=== PATIENT | male | born 1955 | race American Indian/Alaskan Native ===

== ENCOUNTER 2017-06-02 12:04 | Emergency (ER) | payer SELFPAY ==
[2017-06-02] MEDS ORDERED: HYDROGEN PEROXIDE TP ONE (19:42)
[2017-06-02] MEDS ORDERED: CATAPRES PO ONE (19:44)
--- NOTE | 2017-06-02 19:46 | Emergency Department Report ---
ED ENT HPI - General Chief complaint: Earache Stated complaint: L EAR PAIN Time Seen by Provider: 06/02/17 18:43 Source: patient Mode of arrival: Ambulatory Limitations: No Limitations - History of Present Illness Initial comments: This is a 62-year-old male nontoxic, well nourished in appearance, no acute signs of distress presents to the ED complaining of left ear pain 3 days. Patient stated he was cleaning his ear with Q-tip and stated he thinks he impacted his ear with ear wax. Patient states he has increased hearing but denies having hearing loss. Patient denies any trauma to the region. Denies ear discharge, chest pain, shortness of breath, headache, blurry vision, numbness, tingling, stiff neck, headache, fever or chills. Patient denies any allergies. Past medical history includes hypertension and diabetes. Patient stated he needs a refill for his glipizide 5 mg. MD complaint: ear pain -: Gradual, days(s) (3) Location: L ear Severity: mild Quality: other (hearing decreased) Consistency: constant Improves with: none Worsens with: none Associated Symptoms: denies: fever, cough, gum swelling, toothache, pain with swallowing, sore throat, tinnitus, hearing loss, discharge from ear, rhinorrhea - Related Data Previous Rx's Medication Instructions Recorded Last Taken Type Levofloxacin [Levaquin TAB] 500 mg PO QDAY #7 tablet 04/08/15 Unknown Rx glipiZIDE [Glucotrol] 5 mg PO BID #60 tablet 05/13/16 Unknown Rx Amoxicillin 500 mg PO BID #20 capsule 06/02/17 Unknown Rx amLODIPine [Norvasc] 5 mg PO DAILY #30 tab 06/02/17 Unknown Rx glipiZIDE [Glucotrol Xl] 5 mg PO BID #60 tab.er.24 06/02/17 Unknown Rx Allergies Allergy/AdvReac Type Severity Reaction Status Date / Time No Known Allergies Allergy Unverified 05/13/16 15:05 ED Dental HPI - General Chief complaint: Earache Stated complaint: L EAR PAIN Time Seen by Provider: 06/02/17 18:43 Source: patient Mode of arrival: Ambulatory Limitations: No Limitations - Related Data Previous Rx's Medication Instructions Recorded Last Taken Type Levofloxacin [Levaquin TAB] 500 mg PO QDAY #7 tablet 04/08/15 Unknown Rx glipiZIDE [Glucotrol] 5 mg PO BID #60 tablet 05/13/16 Unknown Rx Amoxicillin 500 mg PO BID #20 capsule 06/02/17 Unknown Rx amLODIPine [Norvasc] 5 mg PO DAILY #30 tab 06/02/17 Unknown Rx glipiZIDE [Glucotrol Xl] 5 mg PO BID #60 tab.er.24 06/02/17 Unknown Rx Allergies Allergy/AdvReac Type Severity Reaction Status Date / Time No Known Allergies Allergy Unverified 05/13/16 15:05 ED Review of Systems ROS: Stated complaint: L EAR PAIN Other details as noted in HPI Constitutional: denies: chills, fever Eyes: denies: eye pain, eye discharge, vision change ENT: denies: ear pain, throat pain Respiratory: denies: cough, shortness of breath, wheezing Cardiovascular: denies: chest pain, palpitations Endocrine: no symptoms reported Gastrointestinal: denies: abdominal pain, nausea, diarrhea Genitourinary: denies: urgency, dysuria Musculoskeletal: denies: back pain, joint swelling, arthralgia Skin: denies: rash, lesions Neurological: denies: headache, weakness, paresthesias Psychiatric: denies: anxiety, depression Hematological/Lymphatic: denies: easy bleeding, easy bruising ED Past Medical Hx - Past Medical History Previous Medical History?: Yes Hx Hypertension: Yes Hx Diabetes: Yes Hx Seizures: Yes - Surgical History Past Surgical History?: Yes Additional Surgical History: RIGHT THUMB. RIGHT ARM SURGERY - Social History Smoking Status: Former Smoker Substance Use Type: Alcohol - Medications Home Medications: Home Medications Medication Instructions Recorded Confirmed Last Taken Type Levofloxacin [Levaquin TAB] 500 mg PO QDAY #7 tablet 04/08/15 01/08/16 Unknown Rx glipiZIDE [Glucotrol] 5 mg PO BID #60 tablet 05/13/16 Unknown Rx Amoxicillin 500 mg PO BID #20 capsule 06/02/17 Unknown Rx amLODIPine [Norvasc] 5 mg PO DAILY #30 tab 06/02/17 Unknown Rx glipiZIDE [Glucotrol Xl] 5 mg PO BID #60 tab.er.24 06/02/17 Unknown Rx ED Physical Exam - General Limitations: No Limitations General appearance: alert, in no apparent distress - Head Head exam: Present: atraumatic, normocephalic, normal inspection - Eye Eye exam: Present: normal appearance, PERRL, EOMI. Absent: scleral icterus, conjunctival injection, nystagmus, periorbital swelling, periorbital tenderness Pupils: Present: normal accommodation - ENT ENT exam: Present: normal exam, normal orophraynx, mucous membranes moist, normal external ear exam - Expanded ENT Exam Expanded Ear exam: Present: normal external inspection TM/Canal exam: Erythema: Left TM, Bulging: Left TM, Cerumen Impaction: Left TM Mouth exam: Present: normal external inspection, tongue normal. Absent: drooling, trismus, muffled voice, tongue elevation, laceration Teeth exam: Present: normal inspection Throat exam: Positive: normal inspection. Negative: tonsillar erythema, tonsillomegaly, tonsillar exudate, R peritonsillar mass, L peritonsillar mass - Neck Neck exam: Present: normal inspection, full ROM. Absent: tenderness, meningismus, lymphadenopathy, thyromegaly - Respiratory Respiratory exam: Present: normal lung sounds bilaterally. Absent: respiratory distress, wheezes, rales, rhonchi, stridor, chest wall tenderness, accessory muscle use, decreased breath sounds, prolonged expiratory - Cardiovascular Cardiovascular Exam: Present: regular rate, normal rhythm, normal heart sounds. Absent: bradycardia, tachycardia, irregular rhythm, systolic murmur, diastolic murmur, rubs, gallop - GI/Abdominal GI/Abdominal exam: Present: soft, normal bowel sounds - Rectal Rectal exam: Present: deferred - Extremities Exam Extremities exam: Present: normal inspection, full ROM, normal capillary refill. Absent: tenderness, pedal edema, joint swelling, calf tenderness - Back Exam Back exam: Present: normal inspection, full ROM. Absent: tenderness, CVA tenderness (R), CVA tenderness (L), muscle spasm, paraspinal tenderness, vertebral tenderness, rash noted - Neurological Exam Neurological exam: Present: alert, oriented X3, CN II-XII intact, normal gait, reflexes normal - Psychiatric Psychiatric exam: Present: normal affect, normal mood - Skin Skin exam: Present: warm, dry, intact, normal color. Absent: rash ED Course Vital Signs 06/02/17 14:09 Temperature 98.3 F Pulse Rate 74 Respiratory 16 Rate Blood Pressure 177/93 O2 Sat by Pulse 99 Oximetry - Reevaluation(s) Reevaluation #1: 06/02/17 19:48 Patient is speaking in full sentences with no signs of distress noted. Reevaluation #2: 06/02/17 19:50 Hydrogen peroxide used mixed with warm water 50-50 to clean out the cerumen impaction. I used wax curet to remove the cercumen impaction. Patient stated hearing has returned to normal. Reevaluation #3: 06/02/17 19:53 Patient received Catapres 0.2 mg for his high blood pressure. Well wait until blood pressure is within normal limits before discharge. Critical care attestation.: If time is entered above; I have spent that time in minutes in the direct care of this critically ill patient, excluding procedure time. ED Disposition Clinical Impression: Cerumen impaction Qualifiers: Laterality: left Qualified Code(s): H61.22 - Impacted cerumen, left ear Otitis media Qualifiers: Otitis media type: unspecified Chronicity: unspecified Laterality: left Qualified Code(s): H66.92 - Otitis media, unspecified, left ear Hypertension Qualifiers: Hypertension type: unspecified Qualified Code(s): I10 - Essential (primary) hypertension Disposition: DC- TO HOME OR SELFCARE Is pt being admited?: No Does the pt Need Aspirin: No Condition: Stable Instructions: Cerumen Impaction (ED), Otitis Media (ED), Amoxicillin (By mouth) , Hypertension (ED), Low Sodium Diet (ED) Additional Instructions: Keep a daily diary of your blood pressure and presented to year primary care doctor. Follow-up with your primary care doctor in 3-5 days or if symptoms worsen or continue returns to emergency room as soon as possible. Prescriptions: amLODIPine [Norvasc] 5 mg PO DAILY #30 tab Amoxicillin 500 mg PO BID #20 capsule glipiZIDE [Glucotrol Xl] 5 mg PO BID #60 tab.er.24 Referrals: PRIMARY CAREMD [Primary Care Provider] - 3-5 Days GUERA HINOJOSA MD [Staff Physician] - 3-5 Days [facility] [Outside] - 3-5 Days [facility] [Outside] - 3-5 Days Forms: Work/School Release Form(ED)
[2017-06-02 21:13] VITALS: BP 122/82
== END 2017-06-02 21:23 | disposition home or self-care (01) ==
LOC: ED 12:04
DX: H61.22 Impacted cerumen, left ear (principal); H66.92 Otitis media, unspecified, left ear; I10 Essential (primary) hypertension; E11.9 Type 2 diabetes mellitus without complications; Z87.891 Personal history of nicotine dependence
CPT/HCPCS: 99282

== ENCOUNTER 2018-09-19 14:45 | Emergency (ER) | payer OTHER ==
[2018-09-19 15:19] LABS: Basophils % (Auto) 0.5 % (0.0-1.8); Eosinophils # (Auto) 0.1 K/mm3 (0.0-0.4); Eosinophils % (Auto) 1.3 % (0.0-4.3); Hematocrit 43.6 % (35.5-45.6); Hemoglobin 14.6 gm/dl (11.8-15.2); Lymphocytes # (Auto) 2.3 K/mm3 (1.2-5.4); Lymphocytes % (Auto) 32.6 % (13.4-35.0); Mean Corpuscular HGB Conc 34 % (32-34); Mean Corpuscular Volume 86 fl (84-94); Monocytes # (Auto) 0.5 K/mm3 (0.0-0.8); Monocytes % (Auto) 7.3 % (0.0-7.3); Platelet Count 296 K/mm3 (140-440); Red Blood Count 5.08 M/mm3 (3.65-5.03); Red Cell Distribution Width 13.1 % (13.2-15.2)
[2018-09-19 15:29] LABS: BUN/Creatinine Ratio 10; Blood Urea Nitrogen 12 mg/dL (9-20); Calcium 9.4 mg/dL (8.4-10.2); Hemolysis Index 24
[2018-09-19 16:03] LABS: Bilirubin,Urine NEG (Negative); Blood,Urine NEG (Negative); Color,Urine Straw (Yellow); Mucus,Urine FEW /HPF; Protein,Urine <15 mg/dL mg/dL (Negative); Urobilinogen,Urine < 2.0 mg/dL (<2.0); WBC,Urine < 1.0 /HPF (0.0-6.0)
[2018-09-19] MEDS ORDERED: CATAPRES PO ONE (18:03)
--- NOTE | 2018-09-19 18:08 | Emergency Department Report ---
HPI - General Chief Complaint: High BP Time Seen by Provider: 09/19/18 17:25 - HPI HPI: This is a 63-year-old male with a history of blood pressure and diabetes uncontrolled with medication who presents to ED stating that he is out of his blood pressure medication and diabetes medication because he does not have a primary care doctor due to him not have insurance. Patient states he just got his insurance and needs primary care doctor to keep his old on an control. Patient states he took his blood sugar this morning and it was high in the 300s so he came to be evaluated. Patient also states he has a history of prostate disorder which he is taking medication for. Patient denies fever/ nausea vomiting/chest pain/shortness of breath. ED Past Medical Hx - Past Medical History Hx Hypertension: Yes Hx Diabetes: Yes Hx Seizures: Yes - Surgical History Additional Surgical History: RIGHT THUMB. RIGHT ARM SURGERY - Social History Smoking Status: Never Smoker Substance Use Type: Alcohol - Medications Home Medications: Home Medications Medication Instructions Recorded Confirmed Last Taken Type levoFLOXacin [Levaquin TAB] 500 mg PO QDAY #7 tablet 04/08/15 01/08/16 Unknown Rx glipiZIDE [Glucotrol] 5 mg PO BID #60 tablet 05/13/16 Unknown Rx Amoxicillin 500 mg PO BID #20 capsule 06/02/17 Unknown Rx amLODIPine [Norvasc] 5 mg PO DAILY #30 tab 06/02/17 Unknown Rx glipiZIDE [Glucotrol Xl] 5 mg PO BID #60 tab.er.24 06/02/17 Unknown Rx Metformin HCl [Glucophage] 500 mg PO BID #30 tablet 09/19/18 Unknown Rx amLODIPine [Norvasc] 10 mg PO DAILY #40 tab 09/19/18 Unknown Rx ED Review of Systems ROS: Stated complaint: HIGH GLUCOSE/HBP Other details as noted in HPI Constitutional: denies: chills, fever Eyes: denies: eye pain, eye discharge, vision change ENT: denies: ear pain, throat pain Respiratory: denies: cough, shortness of breath, wheezing Cardiovascular: denies: chest pain, palpitations Endocrine: no symptoms reported Gastrointestinal: denies: abdominal pain, nausea, diarrhea Genitourinary: frequency. denies: urgency, dysuria, hematuria, discharge Musculoskeletal: denies: back pain, joint swelling, arthralgia Neurological: denies: headache, paresthesias Physical Exam - Physical Exam Vital Signs: Vital Signs 09/19/18 14:50 Temperature 97.7 F Pulse Rate 78 Respiratory 18 Rate Blood Pressure 191/111 O2 Sat by Pulse 95 Oximetry Physical Exam: GENERAL: Alert and oriented x3, no apparent distress, Normal Gait, atraumatic. HEAD: Head is normocephalic and a-traumatic. EYES: Extra ocular muscles are intact. Pupils are equal, round, and reactive to light and accommodation. NECK: Supple. Non edematous, No carotid bruits. No lymphadenopathy or thyromegaly. No C-spine tenderness LUNGS: Symetrical with respiration, No wheezing, no rales or crackles, CTAB. HEART: S1, S2 present, regular rate and rhythm without murmur, no rubs, no g allops. Non tender to palpation NEUROLOGIC: The patient is cooperative with no focal neurologic deficits. SKIN: Warm and dry, No lesions, No ulceration or induration present. ED Course Vital Signs 09/19/18 14:50 Temperature 97.7 F Pulse Rate 78 Respiratory 18 Rate Blood Pressure 191/111 O2 Sat by Pulse 95 Oximetry ED Medical Decision Making - Lab Data Result diagrams: 09/19/18 15:05 09/19/18 15:05 Laboratory Last Values WBC 7.1 K/mm3 (4.5-11.0) 09/19/18 15:05 RBC 5.08 M/mm3 (3.65-5.03) H 09/19/18 15:05 Hgb 14.6 gm/dl (11.8-15.2) 09/19/18 15:05 Hct 43.6 % (35.5-45.6) 09/19/18 15:05 MCV 86 fl (84-94) 09/19/18 15:05 MCH 29 pg (28-32) 09/19/18 15:05 MCHC 34 % (32-34) 09/19/18 15:05 RDW 13.1 % (13.2-15.2) L 09/19/18 15:05 Plt Count 296 K/mm3 (140-440) 09/19/18 15:05 Lymph % (Auto) 32.6 % (13.4-35.0) 09/19/18 15:05 [place] % (Auto) 7.3 % (0.0-7.3) 09/19/18 15:05 Eos % (Auto) 1.3 % (0.0-4.3) 09/19/18 15:05 Baso % (Auto) 0.5 % (0.0-1.8) 09/19/18 15:05 Lymph # 2.3 K/mm3 (1.2-5.4) 09/19/18 15:05 [place] # 0.5 K/mm3 (0.0-0.8) 09/19/18 15:05 Eos # 0.1 K/mm3 (0.0-0.4) 09/19/18 15:05 Baso # 0.0 K/mm3 (0.0-0.1) 09/19/18 15:05 Seg Neutrophils % 58.3 % (40.0-70.0) 09/19/18 15:05 Seg Neutrophils # 4.1 K/mm3 (1.8-7.7) 09/19/18 15:05 VBG pH 7.370 (7.320-7.420) 09/19/18 15:05 Sodium 136 mmol/L (137-145) L 09/19/18 15:05 Potassium 4.9 mmol/L (3.6-5.0) 09/19/18 15:05 Chloride 97.8 mmol/L (98-107) L 09/19/18 15:05 Carbon Dioxide 27 mmol/L (22-30) 09/19/18 15:05 Anion Gap 16 mmol/L 09/19/18 15:05 BUN 12 mg/dL (9-20) 09/19/18 15:05 Creatinine 1.2 mg/dL (0.8-1.5) 09/19/18 15:05 Estimated GFR > 60 ml/min 09/19/18 15:05 BUN/Creatinine Ratio 10 % 09/19/18 15:05 Glucose 293 mg/dL (75-100) H 09/19/18 15:05 POC Glucose 244 (70-105) H 09/19/18 15:01 Calcium 9.4 mg/dL (8.4-10.2) 09/19/18 15:05 Urine Color Straw (Yellow) 09/19/18 15:21 Urine Turbidity Clear (Clear) 09/19/18 15:21 Urine pH 5.0 (5.0-7.0) 09/19/18 15:21 Ur Specific [place] 1.002 (1.003-1.030) L 09/19/18 15:21 Urine Protein <15 mg/dl mg/dL (Negative) 09/19/18 15:21 Urine Glucose (UA) >=500 mg/dL (Negative) 09/19/18 15:21 Urine Ketones Neg mg/dL (Negative) 09/19/18 15:21 Urine Blood Neg (Negative) 09/19/18 15:21 Urine Nitrite Neg (Negative) 09/19/18 15:21 Urine Bilirubin Neg (Negative) 09/19/18 15:21 Urine Urobilinogen < 2.0 mg/dL (<2.0) 09/19/18 15:21 Ur Leukocyte Esterase Neg (Negative) 09/19/18 15:21 Urine WBC (Auto) < 1.0 /HPF (0.0-6.0) 09/19/18 15:21 Urine RBC (Auto) 1.0 /HPF (0.0-6.0) 09/19/18 15:21 U Epithel Cells (Auto) < 1.0 /HPF (0-13.0) 09/19/18 15:21 Urine Mucus Few /HPF 09/19/18 15:21 Last Vital Signs Temp 97.1 F L 09/19/18 18:09 Pulse 58 L 09/19/18 18:09 Resp 20 09/19/18 18:09 BP 157/91 09/19/18 18:09 Pulse Ox 96 09/19/18 18:09 - Medical Decision Making 63-year-old male who presents with elevated blood pressure elevated blood glucose. CBC, CMP, urinalysis ordered. Labs are within normal limits. Blood glucose elevated at 290, initial blood pressure was 191/111. After my evaluation blood pressure was rechecked and was 157/91. At this time patient is not a candidate for clonidine and will not be given clonidine in the ED. Patient will be discharged with a referral for primary care physician as well as a urologist. Requests by patient. Discussed the patient to take daily pressure medication as well as given him as well as metformin twice a day. Discussed patient continue checking his blood pressure blood sugar daily. Patient states he will call primary care physician as referred in the morning to make a follow-up appointment as soon as possible. She is in no acute respiratory tract throughout ED stay. Patient speaking in clear sentences. Critical care attestation.: If time is entered above; I have spent that time in minutes in the direct care of this critically ill patient, excluding procedure time. ED Disposition Clinical Impression: Hypertension, Diabetes mellitus Disposition: DC-01 TO HOME OR SELFCARE Is pt being admited?: No Does the pt Need Aspirin: No Condition: Stable Instructions: Hypertension (ED), Diabetes Mellitus Type 2 in Adults (ED) Additional Instructions: Make sure to follow up with the primary care physician as discussed. Take all your medications as you've been prescribed. If you have any worsening symptoms or develop new symptoms please return to ED immediately. Prescriptions: amLODIPine [Norvasc] 10 mg PO DAILY #40 tab Metformin HCl [Glucophage] 500 mg PO BID #30 tablet Referrals: HOA BRANDON MD [Staff Physician] - 3-5 Days RAGHAVENDRA FREY MD [Referring] - 3-5 Days ITZEL SIMONS MD [Referring] - 3-5 Days CORNELIUS BEYER MD [Referring] - 3-5 Days [facility] [Provider Group] - 3-5 Days [facility] [Provider Group] - 3-5 Days Forms: Accompanied Note, Work/School Release Form(ED) Time of Disposition: 18:18
[2018-09-19 18:10] VITALS: BP 157/91
== END 2018-09-19 19:00 | disposition home or self-care (01) ==
LOC: ED 14:45
DX: I10 Essential (primary) hypertension (principal); E11.9 Type 2 diabetes mellitus without complications
CPT/HCPCS: 36415; 80048; 81001; 82805; 82962; 85025